=== PATIENT | female | born 1950 | race Caucasian/White ===

== ENCOUNTER 2017-07-29 19:29 | Observation (INO) ==
[2017-07-29] MEDS ORDERED: *HR* LORazepam 2 MG/ML VIAL IVP ONE (19:45)
--- NOTE | 2017-07-29 19:45 | Emergency Department Note ---
Disposition Clinical Impression: UTI (urinary tract infection) Qualifiers: Urinary tract infection type: acute cystitis Hematuria presence: without hematuria Qualified Code(s): N30.00 - Acute cystitis without hematuria Altered mental status Qualifiers: Altered mental status type: unspecified Qualified Code(s): R41.82 - Altered mental status, unspecified Disposition: Admitted As Inpatient Condition: Good Referrals: Tera Stroud MD [Primary Care Provider] - Forms: ED Satisfaction Letter Time of Disposition: 22:00 Altered Mental Status HPI - General Chief Complaint: ED Altered Mental Status Stated Complaint: slurred speech, leaning toward left side Time Seen by Provider: 07/29/17 19:35 Source: patient, family, EMS Mode of arrival: EMS Limitations: altered mental status Nursing Notes Reviewed: Yes Vital Signs Reviewed: Yes - History of Present Illness HPI Narrative: 66-year-old white female with a history of dementia, presents with onset of leaning to the left and speech being more slurred than usual since around 9 PM yesterday evening. The patient does not ambulate, she is in a wheelchair. By her daughter. She has dementia. Her speech is usually not clear, but her daughter states it is more slurred than usual and she is leaning to the left. No other specific symptoms. Due to the patient's dementia she is unable to provide any other specific history/symptoms. complaint: other (Leaning to the left and slurred speech) Onset (ago): hour(s) () Time: 21:00 (Yesterday) Consistency of Symptoms: unknown Context: other (Dementia) - Related Data Home Medications Medication Instructions Recorded Confirmed Atorvastatin [Lipitor] 10 mg PO HS 07/14/16 07/29/17 BuPROPion SR (12 HR) [Wellbutrin 150 mg PO BID 07/14/16 07/29/17 SR] DiphenhydraMINE [Benadryl] 25 mg PO Q6HR 07/14/16 07/29/17 Donepezil HCl [Aricept] 10 mg PO DAILY 07/14/16 07/29/17 Levothyroxine [Synthroid] 50 mcg PO 0630 07/14/16 07/29/17 Lisinopril [Zestril] 2.5 mg PO DAILY 10/24/16 11/08/17 Memantine HCl [Namenda Xr] 7 mg PO DAILY 07/14/16 07/29/17 Ranitidine HCl [Acid Race Board Attendant] 150 mg PO BID 07/14/16 07/29/17 Allergies Allergy/AdvReac Type Severity Reaction Status Date / Time aspirin Allergy Swelling Verified 07/29/17 19:32 of Lip/Tongue/Throat Penicillins Allergy Swelling Verified 07/29/17 19:32 of Lip/Tongue/Throat Limitations: ROS unobtainable due to patients medical condition (Dementia) Past Medical History - Past Medical History Medical history: Reports: dementia, GERD, hyperlipidemia, hypertension, thyroid disease Psychiatric history: Reports: no psych history PALLET ASSEMBLER history: Reports: no PALLET ASSEMBLER history - Social History Smoking Status: Former smoker Smokeless Tobacco Status: No Alcohol use: Reports: none Drug use: Reports: none Physical Exam - General Limitations: altered mental status (Dementia) General appearance: alert, anxious, other - Head Head exam: atraumatic (Agitated), normocephalic - Eye Eye exam: Present: PERRL, EOMI. Absent: scleral icterus, conjunctival injection - ENT ENT exam: normal oropharynx, mucous membranes moist, TM's normal bilaterally - Neck Neck exam: Present: normal inspection, full ROM, other (Severe kyphosis) - Respiratory Respiratory exam: Present: normal lung sounds bilaterally. Absent: respiratory distress, wheezes - Cardiovascular Cardiovascular exam: Present: regular rate, normal rhythm, normal heart sounds - Abdominal Exam Abdominal exam: Present: soft, Non-Tender, normal bowel sounds, other (Large soft midline ventral hernia). Absent: organomegaly, mass - Extremities Exam Extremities exam: Present: normal capillary refill, pedal edema (2+ on the right.). Absent: calf tenderness - Neurological Exam Neurological exam: Present: alert, reflexes normal. Absent: oriented X3 ( Patient is confused, she is not oriented person place or time.), CN II-XII intact (No facial asymmetry. Tongue is midline. Her speech is intermittently slurred and difficult to understand at times.), motor sensory deficit (She appears to move all extremities symmetrically. She does not cooperate for a formal motor exam.) - Psychiatric Psychiatric exam: Present: agitated, anxious - Skin Skin exam: Present: warm, dry, intact Course - Reevaluation(s) Reevaluation #1: Discussed with Dr. Kramer. He accepts the patient for admission. Time: 22:00 Vital Signs Temperature 96.6 F L 07/29/17 19:32 Pulse Rate 65 07/29/17 19:32 Respiratory Rate 20 07/29/17 19:32 Blood Pressure 119/66 07/29/17 19:32 O2 Sat by Pulse Oximetry 95 07/29/17 19:32 Temperature 96.6 F L 07/29/17 19:32 Pulse Rate 92 07/29/17 21:47 Respiratory Rate 16 07/29/17 21:47 Blood Pressure 129/74 07/29/17 21:47 O2 Sat by Pulse Oximetry 94 07/29/17 21:47 Oxygen Delivery Oxygen Delivery Room Air Altered Mental Status - MDM Narrative Medical decision making narrative: Differential includes but is not limited to stroke, intracerebral hemorrhage, hypoglycemia, hyperglycemia, urinary tract infection, sepsis, dehydration, electrolyte abnormality. The patient has a urinary tract infection. Her baseline is confused. Her pH is somewhat difficult to understand, is difficult to tell how much different this is from her baseline. She is wheelchair bound. She does not appear to have any focal weakness. Her head CT is normal. Her symptoms are almost 24 hours old. I have a low index of suspicion for CVA. I gave her Rocephin for UTI. She will be admitted and observed. - Lab Data Lab results reviewed: Yes I reviewed the patient's lab results. Result diagrams: 07/29/17 19:52 07/29/17 19:52 Lab Results 07/29/17 07/29/17 07/29/17 Range/Units 19:52 19:52 19:52 WBC 5.2 (4.3-11.1) K/mcL RBC 4.36 (3.82-4.97) M/mcL Hgb 11.1 L (11.5-15.4) g/dL Hct 35.4 (35.3-44.9) % MCV 81.2 L (83.0-100.0) fL MCH 25.5 L (28.0-33.3) pg MCHC 31.4 L (31.6-35.5) g/dL RDW 15.2 H (11.5-14.5) % Plt Count 272 (140-400) K/mcL MPV 9.7 (9.4-12.4) fL Immature Gran % 0.4 (0-4) % Seg Neutrophils % 63.6 % Lymphocytes % 25.1 % Monocytes % 6.5 % Eosinophils % 4.0 % Basophils % 0.4 % Neutrophils # 3.3 (1.6-8.9) K/mcL Lymphocytes # 1.3 (0.6-4.6) K/mcL Monocytes # 0.3 (0.0-1.3) K/mcL Eosinophils # 0.2 (0.0-0.6) K/mcL Basophils # 0.0 (0.0-0.2) K/mcL Sodium 138 (136-145) mEq/L Potassium 3.5 (3.5-4.5) mEq/L Chloride 102 (98-109) mEq/L Carbon Dioxide 29 (19-29) mEq/L BUN 14 (7-20) mg/dL Creatinine 0.81 (0.57-1.11) mg/dL Est GFR ( Amer) > 60 (> 60) Est GFR (Non-Af Amer) > 60 (> 60) BUN/Creatinine Ratio 17 (6-26) Glucose 99 (70-99) mg/dL Calculated Osmolality 287 (280-300) Lactic Acid 0.9 (0.5-2.2) mmol/L Calcium 9.7 (8.6-10.8) mg/dL Total Bilirubin 0.4 (0.2-1.2) mg/dL AST 12 (5-34) Units/L ALT 8 (0-55) Units/L Alkaline Phosphatase 74 (38-126) Units/L Troponin I (0-0.03) ng/mL Serum Total Protein 6.9 (6.0-8.3) g/dL Albumin 3.1 L (3.5-5.0) g/dL Globulin 3.8 H (2.4-3.5) g/dL Albumin/Globulin Ratio 0.8 L (1.1-2.2) Urine Color (Yellow) Urine Clarity (Clear) Urine pH (5.0-8.0) pH Units Ur Specific Hayden (1.010-1.025) Urine Protein (Neg-Trace) mg/dL Urine Glucose (UA) (Normal) mg/dL Urine Ketones (Negative) mg/dL Urine Blood (Negative) Urine Nitrite (Negative) Urine Bilirubin (Negative) Urine Urobilinogen (Normal) mg/dL Ur Leukocyte Esterase (Negative) Urine Microscopic RBC (0-3) per hpf Urine Microscopic WBC (0-3) per hpf Ur Squamous Epith Cells (None-Few) per lpf Urine Bacteria (None-Few) per hpf Ur Culture Indicated? (NO) 07/29/17 07/29/17 Range/Units 19:52 20:40 WBC (4.3-11.1) K/mcL RBC (3.82-4.97) M/mcL Hgb (11.5-15.4) g/dL Hct (35.3-44.9) % MCV (83.0-100.0) fL MCH (28.0-33.3) pg MCHC (31.6-35.5) g/dL RDW (11.5-14.5) % Plt Count (140-400) K/mcL MPV (9.4-12.4) fL Immature Gran % (0-4) % Seg Neutrophils % % Lymphocytes % % Monocytes % % Eosinophils % % Basophils % % Neutrophils # (1.6-8.9) K/mcL Lymphocytes # (0.6-4.6) K/mcL Monocytes # (0.0-1.3) K/mcL Eosinophils # (0.0-0.6) K/mcL Basophils # (0.0-0.2) K/mcL Sodium (136-145) mEq/L Potassium (3.5-4.5) mEq/L Chloride (98-109) mEq/L Carbon Dioxide (19-29) mEq/L BUN (7-20) mg/dL Creatinine (0.57-1.11) mg/dL Est GFR ( Amer) (> 60) Est GFR (Non-Af Amer) (> 60) BUN/Creatinine Ratio (6-26) Glucose (70-99) mg/dL Calculated Osmolality (280-300) Lactic Acid (0.5-2.2) mmol/L Calcium (8.6-10.8) mg/dL Total Bilirubin (0.2-1.2) mg/dL AST (5-34) Units/L ALT (0-55) Units/L Alkaline Phosphatase (38-126) Units/L Troponin I 0.00 (0-0.03) ng/mL Serum Total Protein (6.0-8.3) g/dL Albumin (3.5-5.0) g/dL Globulin (2.4-3.5) g/dL Albumin/Globulin Ratio (1.1-2.2) Urine Color Yellow (Yellow) Urine Clarity Slightly Cloudy A (Clear) Urine pH 6.0 (5.0-8.0) pH Units Ur Specific Hayden 1.010 (1.010-1.025) Urine Protein Negative (Neg-Trace) mg/dL Urine Glucose (UA) Normal (Normal) mg/dL Urine Ketones Negative (Negative) mg/dL Urine Blood Trace-intact H (Negative) Urine Nitrite Positive A (Negative) Urine Bilirubin Negative (Negative) Urine Urobilinogen Normal (Normal) mg/dL Ur Leukocyte Esterase Moderate H (Negative) Urine Microscopic RBC 0-3 (0-3) per hpf Urine Microscopic WBC 50-100 H (0-3) per hpf Ur Squamous Epith Cells Moderate H (None-Few) per lpf Urine Bacteria Many H (None-Few) per hpf Ur Culture Indicated? YES A (NO) - Radiology Data Radiology results reviewed: Yes I reviewed the patient's radiology results. Impressions Head CT 07/29/17 19:42 IMPRESSION: Moderate motion degradation. No acute intracranial abnormality detected. D/ / Tomas Padgett MD / Tomas Padgett MD Interpreting Provider: Tomas Padgett MD Chest X-Ray 07/29/17 19:45 IMPRESSION: Limited negative portable chest radiograph. D/ / Tomas Padgett MD / Tomas Padgett MD Interpreting Provider: Tomas Padgett MD - EKG Data EKG attestation: Yes I reviewed and interpreted this EKG. EKG results narrative: Sinus rhythm, rate of 62, age indeterminate inferior infarct, nonspecific ST-T changes. Rhythm strip shows a sinus rhythm with rate of 62, NH interval 148 ms , QRS 90 ms with no other ectopy. The patient is demented, she is agitated, there is a lot of artifact. No old EKG available for comparison. TPA Checklist - LKW: 3-4.5 hrs Add. Warnings/Precautions Patient/family understanding: The patient/family members have been counseled and understood the risk, benefit , and alternatives of treatment.
[2017-07-29 19:58] LABS: Basophils % 0.4 %; Eosinophils # 0.2 K/mcL (0.0-0.6); Hematocrit 35.4 % (35.3-44.9); Hemoglobin 11.1 g/dL (11.5-15.4); Immature Granulocytes % 0.4 % (0-4); Lymphocytes # 1.3 K/mcL (0.6-4.6); Lymphocytes % 25.1 %; Mean Corpuscular HGB Conc 31.4 g/dL (31.6-35.5); Mean Corpuscular Hemoglobin 25.5 pg (28.0-33.3); Mean Corpuscular Volume 81.2 fL (83.0-100.0); Mean Platelet Volume 9.7 fL (9.4-12.4); Monocytes # 0.3 K/mcL (0.0-1.3); Monocytes % 6.5 %; Neutrophils # 3.3 K/mcL (1.6-8.9); Platelet Count 272 K/mcL (140-400); Red Blood Count 4.36 M/mcL (3.82-4.97); Red Cell Distribution Width 15.2 % (11.5-14.5); Segmented Neutrophils % 63.6 %
[2017-07-29 20:17] LABS: Alanine Aminotransferase 8 Units/L (0-55); Albumin 3.1 g/dL (3.5-5.0); Albumin/Globulin Ratio 0.8 (1.1-2.2); Alkaline Phosphatase 74 Units/L (38-126); Aspartate Amino Transferase 12 Units/L (5-34); BUN/Creatinine Ratio 17 (6-26); Bilirubin,Total 0.4 mg/dL (0.2-1.2); Blood Urea Nitrogen 14 mg/dL (7-20); Calcium 9.7 mg/dL (8.6-10.8); Carbon Dioxide 29 mEq/L (19-29); Chloride 102 mEq/L (98-109); Globulin 3.8 g/dL (2.4-3.5); Glucose 99 mg/dL (70-99); Osmolality,Calculated 287 (280-300); Potassium 3.5 mEq/L (3.5-4.5); Sodium 138 mEq/L (136-145); Total Protein 6.9 g/dL (6.0-8.3); eGFR For African Americans > 60 (> 60); eGFR For Non-African Americans > 60 (> 60)
[2017-07-29 20:51] LABS: Bilirubin,Urine Negative (Negative); Blood,Urine Trace-intact (Negative); Clarity,Urine Slightly Cloudy (Clear); Color,Urine Yellow (Yellow); Glucose,Urine (UA) Normal (Normal); Ketones,Urine Negative (Negative); Leukocyte Esterase,Urine Moderate (Negative); Nitrite,Urine Positive (Negative); Protein,Urine Negative (Neg-Trace); Urobilinogen,Urine Normal (Normal)
[2017-07-29 21:01] LABS: RBC,Urine 0-3 per hpf (0-3); WBC,Urine 50-100 per hpf (0-3)
[2017-07-29 21:02] LABS: Bacteria,Urine Many per hpf (None-Few); Squamous Epithelial Cell,Urine Moderate per lpf (None-Few)
[2017-07-29] MEDS ORDERED: cefTRIAXone 1,000 MG in Water for inj. (sterile) 10 ML IVP ONE (21:15)
[2017-07-29] MEDS ORDERED: Acetaminophen 325 MG TABLET PO PRN (23:03)
[2017-07-29] MEDS ORDERED: Naloxone 0.4 MG/ML INJ IVP PRN (23:03)
[2017-07-30] MEDS: 0.9 % Sodium Chloride 1,000 ML IVC SCH ×2 (00:55→08:43)
[2017-07-30] MEDS ORDERED: Famotidine 20 MG TABLET PO SCH (09:00)
[2017-07-30] MEDS ORDERED: cefTRIAXone 1,000 MG in Water for inj. (sterile) 10 ML IVP SCH (09:00)
[2017-07-30] MEDS ORDERED: BuPROPion SR (12 HR) 150 MG TABLET PO SCH (09:00)
[2017-07-30] MEDS ORDERED: MEMANTINE HCL 7 MG PO SCH (09:00)
[2017-07-30 10:59] VITALS: BP 99/48
--- NOTE | 2017-07-30 12:38 | Internal Med History&Physical ---
Date of Encounter: 07/30/17 Time of Encounter: 12:10 Assessment and Plan (1) Acute focal neurological deficit Current visit: Yes Status: Acute Now resolved. From history sounds it possibly could have been TIA. She has allergy to aspirin so will start her empirically on Plavix without proceeding with further workup. (2) UTI (urinary tract infection) Current visit: Yes Status: Acute She was started on Rocephin in emergency room. Qualifiers: Urinary tract infection type: acute cystitis Hematuria presence: without hematuria Qualified Code(s): N30.00 - Acute cystitis without hematuria (3) Anemia Current visit: Yes Status: Chronic Daughter was unaware of this. Hemoglobin was decreased at 11.3 on 01/11/2017. Qualifiers: Anemia type: unspecified type Qualified Code(s): D64.9 - Anemia, unspecified Internal Medicine - H&P: HPI Chief complaint: UTI, acute neurologic deficit Admitted From: Home Plans for Post Hospital Care: Home History of present illness: Ms. Thomas is a 66 year old female who was brought to emergency room after family noted she had slurred speech and was leaning to the left on ambulation onset the previous evening. She was evaluated in emergency room and felt to have UTI. She was admitted to [facility] floor for ongoing care needs. She has significant dementia and could not give any reliable history. Her daughter who supplies history states there have been no previous similar episodes. The daughter states there appears to be full recovery neurologically at this time. She does not have history of strokes or seizures. She was diagnosed with dementia approximately 2 years ago and has been evaluated by a neurologist. She is on Aricept and Namenda. Past Med Surg Social Fam HX - Past Medical History Medical history: dementia, GERD, hyperlipidemia, hypertension, thyroid disease Psychiatric history: no psych history - Social History Smoking Status: Former smoker Smokeless Tobacco Status: No Alcohol use: none Drug use: none Internal Medicine - H&P: Meds Atorvastatin [Lipitor] 10 mg PO HS 07/14/16 [History] BuPROPion SR (12 HR) [Wellbutrin SR] 150 mg PO BID 07/14/16 [History] DiphenhydraMINE [Benadryl] 25 mg PO Q6HR 07/14/16 [History] Donepezil HCl [Aricept] 10 mg PO DAILY 07/14/16 [History] Levothyroxine [Synthroid] 50 mcg PO 0630 07/14/16 [History] Lisinopril [Zestril] 2.5 mg PO DAILY 07/14/16 [History] Memantine HCl [Namenda Xr] 7 mg PO DAILY 07/14/16 [History] Ranitidine HCl [Acid Installer Soft Top] 150 mg PO BID 07/14/16 [History] 3 Allergy/AdvReac Type Severity Reaction Status Date / Time aspirin Allergy Swelling Verified 07/29/17 19:32 of Lip/Tongue/Throat Penicillins Allergy Swelling Verified 07/29/17 19:32 of Lip/Tongue/Throat All Systems PM: A 10-system review of systems was performed and is negative for pertinent findings except as documented above in the HPI. Review of systems: Gen.: Her weight has been stable the past few months Cardiovascular: She has history of hypertension but no ID heart failure angina DVT or pulmonary embolus Respiratory: She smoked from age [age] up to 3 packs per day. She has not been diagnosed with chronic lung disease and does not use home oxygen. She ambulates minimally and only with family members assisting her at home. GI: She has had cholecystectomy. She has occasional GERD symptoms in the past. She has not had disorders of liver or exocrine pancreas. She has had ventral abdominal hernia surgery twice in the past. Hernias have persisted but no further surgery is planned. : No history of hematuria dysuria or kidney stones Neurologic: As per history of present illness Endocrine: She has history of hypothyroidism and hyperlipidemia. She had diabetes several years ago but lost a significant amount of weight and diabetes is now diet controlled. Hematology/oncology: She had mild anemia found on the emergency room lab work. The daughter was unaware of this. There is no history of internal malignancies. Psychiatric: Daughters is uncertain if there is history of depression. There are no other known mental health diagnoses. Musk skeletal: There is no history of DJD gout or other bone joint or muscle disorders. - Constitutional Vitals: Temp Pulse Resp BP Pulse Ox 98.5 F 65 18 108/65 98 07/30/17 10:50 07/30/17 10:50 07/30/17 10:50 07/30/17 10:50 07/30/17 10:50 Exam: Gen.: She is a well-developed well-nourished female lying in bed who appears slightly agitated and confused but in no acute distress HEENT: Head is atraumatic normocephalic. Eyes: EOMI. There is no scleral icterus. Mouth: Mucosa is moist. Neck: Supple and nontender. There is no thyromegaly or adenopathy noted. Heart: Regular without murmurs gallops or ectopics Lungs: No wheezes or crackles are heard. Abdomen: She has surgical scars from previous abdominal hernia surgeries. She has bilateral lower abdominal hernias. No masses or guarding are noted. 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 There is no cyanosis edema or clubbing noted. Dorsalis pedis and posterior tibial pulses are trace palpable bilaterally. Neurologic: Mental status: She is not able to answer questions. She does not follow commands well. Her speech is phonated without dysarthria but is not logical. Cranial nerves: She does not follow commands. Facial movements appear symmetric to random observation. Her gaze is conjugate. Motor: She does not understand pronator drift testing. She has equal arm home on passive range of motion and moves her arms and legs well randomly. No further neurologic testing is attempted. Skin: Warm and dry Internal Med - H&P Results - Labs CBC & Chem 7: 07/29/17 19:52 07/29/17 19:52
--- NOTE | 2017-07-30 12:50 | Discharge Summary ---
Date of Encounter: 07/30/17 Time of Encounter: 12:10 - Discharge Diagnosis (1) Acute focal neurological deficit Priority: Primary Status: Resolved (2) UTI (urinary tract infection) Priority: Secondary Status: Acute Qualifiers: Urinary tract infection type: acute cystitis Hematuria presence: without hematuria Qualified Code(s): N30.00 - Acute cystitis without hematuria (3) Anemia Priority: Secondary Status: Chronic Qualifiers: Anemia type: unspecified type Qualified Code(s): D64.9 - Anemia, unspecified - Discharge Medications Prescriptions: Clopidogrel [Plavix] 75 mg PO DAILY #30 tablet Lactobacillus [Culturelle] 1 each PO BID #6 cap.sprink Sulfamethoxazole/Trimeth DS [Bactrim DS] 1 each PO BID #6 tablet Home Medications: Atorvastatin [Lipitor] 10 mg PO HS 07/14/16 [History] BuPROPion SR (12 HR) [Wellbutrin SR] 150 mg PO BID 07/14/16 [History] DiphenhydraMINE [Benadryl] 25 mg PO Q6HR 07/14/16 [History] Donepezil HCl [Aricept] 10 mg PO DAILY 07/14/16 [History] Levothyroxine [Synthroid] 50 mcg PO 0630 07/14/16 [History] Lisinopril [Zestril] 2.5 mg PO DAILY 07/14/16 [History] Memantine HCl [Namenda Xr] 7 mg PO DAILY 07/14/16 [History] Ranitidine HCl [Acid [employer] Assistant Manager] 150 mg PO BID 07/14/16 [History] Clopidogrel [Plavix] 75 mg PO DAILY #30 tablet 07/30/17 [Rx] Lactobacillus [Culturelle] 1 each PO BID #6 cap.sprink 07/30/17 [Rx] Sulfamethoxazole/Trimeth DS [Bactrim DS] 1 each PO BID #6 tablet 07/30/17 [Rx] Allergies/Adverse Reactions: 3 Allergy/AdvReac Type Severity Reaction Status Date / Time aspirin Allergy Swelling Verified 07/29/17 19:32 of Lip/Tongue/Throat Penicillins Allergy Swelling Verified 07/29/17 19:32 of Lip/Tongue/Throat Date of admission: 07/29/17 22:09 Primary care physician: Phoebe Rizo CAKE MIXER Consults: 07/29/17 23:46 Consult to Screw Machine Tender [CONS] Routine Reason for SW Consult: Patient receives no home health services and may benefit. 07/30/17 08:57 Consult to Occupational Therapy [CONS] Routine Comment: Evaluate, develop and implement POC Reason for Consult: s/p fall AMS Consult to Physical Therapy [CONS] Routine Comment: Evaluate, develop and implement POC Reason for Consult: s/p fall AMS - Patient Status Disposition: Home, Self-Care Condition: Good Overall status at discharge: patient is progressing back to baseline - Discharge Instructions Follow Up With: Phoebe Rizo, CAKE MIXER [Advanced Practice Nurse] - 1 week - Diet and Activity Activity: resume usual activities as tolerated Diet: advance to your usual diet Hospital course: Ms. Thomas is a 66 year old female who was brought to emergency room after family noted she had slurred speech and was leaning to the left on ambulation onset the previous evening. She was evaluated in emergency room and felt to have UTI. She was admitted to [facility] floor for ongoing care needs. Initial orders were written by the emergency room physician. I saw her on July 30 and performed a history physical and discharge. When I saw her the daughter confirmed her mother was to baseline as speech and ambulation ability. In view of underlying mental status I did not think aggressive workup was indicated. Daughter agreed to the plan to start her on Plavix for possible TIA. She was given Rocephin in emergency room empirically for possible UTI. I will discharge her on Septra DS twice a day for 3 days with Lactobacillus. Anemia testing can be ordered as an outpatient to follow-up on her anemia. She would discharged home to follow with her PCP within one week. - Time Spent with Patient Total time spent providing and/or coordinating discharge services: - Constitutional Vitals: Temp Pulse Resp BP Pulse Ox 98.5 F 65 18 108/65 98 07/30/17 10:50 07/30/17 10:50 07/30/17 10:50 07/30/17 10:50 07/30/17 10:50
--- NOTE | 2017-07-30 18:24 | Electrocardiograph Report ---
[address] [place], [place] [address] Test Date: 2017-07-29 Pat Name: Halle January Department: [id number] Room: [facility] Gender: F Pipeline Operator: Ibis : 1950 Requested By: Gaurav Romero Order Number: [id number] Reading MD: Kae Manriquez Measurements Intervals Albin Rate: 62 P: 71 VT: 148 QRS: -57 QRSD: 90 T: 49 QT: 422 QTc: 427 Interpretive Statements SIGNIFICANT BASELINE ARTIFACT, SUGGEST REPEAT TRACING Electronically Signed On 07-30-2017 18:22:41 EST by Kae Manriquez
== END 2017-07-30 13:54 | disposition home or self-care (01) ==
LOC: INPPIK 19:29 → EMEROOPIK 19:29 → INPPIK 22:39
PROVIDERS: ADMIT Internal Medicine; ATTEND Internal Medicine